=== PATIENT | male | born 1945 | race Caucasian/White ===

== ENCOUNTER 2019-10-25 05:43 | Emergency (ER) | payer OTHER ==
[2019-10-25 06:40] LABS: Absolute Lymphocytes (CBC) 2.1 K/uL (0.7-4.9); Basophils % 0.7 % (0-1.3); Hematocrit 44.3 % (39.6-49.0); MPV 9.4 fL (7.6-11.3); RBC Red Blood Cell Count 4.91 M/uL (4.33-5.43)
[2019-10-25 07:01] LABS: BUN Blood Urea Nitrogen 16 mg/dL (7-18); Bicarbonate 31 mmol/L (21-32); Glucose Level 103 mg/dL (74-106); Magnesium 2.4 mg/dL (1.8-2.4); Potassium 4.7 mmol/L (3.5-5.1); Sodium Level 142 mmol/L (136-145); Troponin (Emerg Dept Use Only) < 0.02 ng/mL (0.0-0.045)
--- NOTE | 2019-10-25 07:28 | ER ---
Nurse's Notes [facility] Name: Wong Valentino Age: 74 yrs Sex: Male : 1945 Arrival Date: 10/25/2019 Time: 05:45 Bed 2 Private MD: Diagnosis: Radiculopathy, cervical region;Paresthesia of skin Presentation: 10/25 05:58 Presenting complaint: Patient states: "I have been getting this shocking feeling in my jd3 right arm that goes down into my right leg periodically. its almost as if someone is shocking me., but it comes and goes.". Transition of care: patient was not received from another setting of care. Onset of symptoms was October 25, 2019. Risk Assessment: Do you want to hurt yourself or someone else? Patient reports no desire to harm self or others. Initial Sepsis Screen: Does the patient meet any 2 criteria? No. Patient's initial sepsis screen is negative. Does the patient have a suspected source of infection? No. Patient's initial sepsis screen is negative. Care prior to arrival: None. 05:58 Method Of Arrival: Ambulatory j 05:58 Acuity: SIDNEY 3 jd3 Historical: - Allergies: 06:02 No Known Allergies; jd3 - Home Meds: 06:02 Crestor oral oral [Active]; jd3 - PMHx: 06:02 None; jd3 - PSHx: 06:02 Appendectomy; jd3 - Immunization history:: Adult Immunizations up to date. - Social history:: Smoking status: Patient/guardian denies using tobacco. - Ebola Screening: : Patient negative for fever greater than or equal to 101.5 degrees Fahrenheit, and additional compatible Ebola Virus Disease symptoms. Screenin:04 Abuse screen: Denies threats or abuse. Nutritional screening: No deficits noted. jd3 Tuberculosis screening: No symptoms or risk factors identified. Fall Risk Ambulatory Aid- None/Bed Rest/Nurse Assist (0 pts). Gait- Normal/Bed Rest/Wheelchair (0 pts) Mental Status- Oriented to own ability (0 pts). Total Rubin Fall Scale indicates No Risk (0-24 pts). Assessment: 06:03 General: Appears in no apparent distress. comfortable, Behavior is calm, cooperative, jd3 appropriate for age. Pain: Complains of pain in right arm and right leg Quality of pain is described as tingling, stinging, Is intermittent. Neuro: Level of Consciousness is awake, alert, obeys commands, Oriented to person, place, time, situation. Cardiovascular: Denies chest pain, Capillary refill < 3 seconds Patient's skin is warm and dry. Respiratory: Airway is patent Respiratory effort is even, unlabored, Respiratory pattern is regular, symmetrical, Denies cough, shortness of breath. GI: No signs and/or symptoms were reported involving the gastrointestinal system. : No signs and/or symptoms were reported regarding the genitourinary system. EENT: No signs and/or symptoms were reported regarding the EENT system. Derm: Skin is intact, Skin is dry, Skin is normal, Skin temperature is warm. Musculoskeletal: Circulation, motion, and sensation intact. Range of motion: intact in all extremities. 07:00 Reassessment: RECD REPORT FROM FREDRICK VIGIL. 74YO WM P/W RUE "SHOCKING" SENSATION. ALL bp CURRENT ORDERS COMPLETED. DISPO PENDING. 07:46 Reassessment: PT D/C HOME AMBULATORY WITH FAMILY, DX WITH CERVICAL RADICULOPATHY. bp Vital Signs: 06:02 BP 134 / 71; Pulse 53; Resp 16 S; Temp 97.2(O); Pulse Ox 99% on R/A; Weight 87.54 kg j (R); Height 6 ft. 0 in. (182.88 cm) (R); Pain 0/10; 07:17 BP 113 / 75; Pulse 56; Resp 16; Pulse Ox 96% ; bp 06:02 Body Mass Index 26.18 (87.54 kg, 182.88 cm) j ED Course: 05:45 Patient arrived in ED. cl3 05:46 Arturo Villegas FNP-C is PHCP. la1 05:46 Arturo Villegas FNP-C is PHCP. la1 05:46 Asif Hook MD is Attending Physician. la1 05:58 Juan Antonio Knight RN is Primary Nurse. jd3 06:00 Triage completed. jd3 06:03 Arm band placed on. jd3 06:04 Patient has correct armband on for positive identification. Bed in low position. Call j light in reach. Side rails up X 1. Adult w/ patient. 06:25 Inserted saline lock: 20 gauge in left antecubital area, using aseptic technique. Blood jd3 collected. 07:03 Primary Nurse role handed off by Juan Antonio Knight RN bp 07:03 Hector Tinajero, RN is Primary Nurse. bp 07:17 CT C Spine In Process Unspecified. EDMS 07:19 Stefan Harrison MD is Referral Physician. la1 07:46 No provider procedures requiring assistance completed. IV discontinued, intact, bp bleeding controlled, No redness/swelling at site. Pressure dressing applied. Administered Medications: 07:30 Drug: Valium 5 mg Route: PO; bp 07:46 Follow up: Response: No adverse reaction bp Outcome: 07:19 Discharge ordered by MD. la1 07:46 Discharged to home ambulatory, with family. bp 07:46 Condition: stable 07:46 Discharge instructions given to patient, Instructed on discharge instructions, follow up and referral plans. medication usage, Demonstrated understanding of instructions, follow-up care, medications, Prescriptions given X 1. 07:47 Patient left the ED. bp Signatures: Dispatcher [employer] EDMA Arturo Villegas, OCCUPATIONAL THERAPY INSTRUCTOR-C OCCUPATIONAL THERAPY INSTRUCTOR-Cla1 Juan Antonio Knight RN RN jHector Kirk, RN RN Filipe Ventura cl3
--- NOTE | 2019-10-25 07:29 | EDPHYS ---
Physician Documentation [facility] Name: Wong Valentino Age: 74 yrs Sex: Male : 1945 Arrival Date: 10/25/2019 Time: 05:45 Bed 2 Private MD: CHADD Physician Asif Hook HPI: 10/25 06:45 This 74 yrs old Male presents to ER via Ambulatory with complaints of Arm la1 Pain. 06:45 The patient or guardian complains of pain. The complaints affect the right leg and la1 right arm. Context: The problem was sustained at home, resulted from unknown cause. Onset: The symptoms/episode began/occurred yesterday. Treatment prior to arrival includes: no previous treatment. Modifying factors: The symptoms are alleviated by nothing. the symptoms are aggravated by nothing. Associated signs and symptoms: Pertinent positives: pain, tingling, Pertinent negatives: decreased range of motion, deformity, erythema, fever, nausea, numbness, swelling, vomiting, warmth, weakness. Severity of symptoms: At their worst the symptoms were mild. The patient has not experienced similar symptoms in the past. The patient has been recently seen by a physician: the patient's primary care provider, for apparently unrelated complaints. pt reports since last night he has had stinging/shooting pain that causes a spasm/twitch in the right arm and occasionally in the right leg, happened about 10 times since 0400 this morning, episodes last just about one second, no associated dizziness, chest pain, sob, fevers.. Historical: - Allergies: 06:02 No Known Allergies; jd3 - Home Meds: 06:02 Crestor oral oral [Active]; jd3 - PMHx: 06:02 None; jd3 - PSHx: 06:02 Appendectomy; jd3 - Immunization history:: Adult Immunizations up to date. - Social history:: Smoking status: Patient/guardian denies using tobacco. - Ebola Screening: : Patient negative for fever greater than or equal to 101.5 degrees Fahrenheit, and additional compatible Ebola Virus Disease symptoms. ROS: 06:48 Constitutional: Negative for fever, chills, and weight loss, Eyes: Negative for injury, la1 pain, redness, and discharge, ENT: Negative for injury, pain, and discharge, Neck: + for right lateral posterior neck pain Cardiovascular: Negative for chest pain, palpitations, and edema, Respiratory: Negative for shortness of breath, cough, wheezing, and pleuritic chest pain, Abdomen/GI: Negative for abdominal pain, nausea, vomiting, diarrhea, and constipation, Back: Negative for injury and pain, : Negative for injury, bleeding, discharge, and swelling, Skin: Negative for injury, rash, and discoloration. 06:48 MS/extremity: Positive for pain, of the right leg and right arm. 06:48 Neuro: Positive for tingling, Negative for altered mental status, dizziness, headache, loss of consciousness, numbness, seizure activity, speech changes, syncope, near syncope, tingling, tremor, visual changes, weakness. Exam: 06:49 Constitutional: This is a well developed, well nourished patient who is awake, alert, la1 and in no acute distress. Head/Face: Normocephalic, atraumatic. Eyes: Pupils equal round and reactive to light, extra-ocular motions intact. Periorbital areas with no swelling, redness, or edema. ENT: Mucous membranes moist. Neck: Supple, full range of motion without nuchal rigidity, or vertebral point tenderness. No Meningismus. Mild pain to palpation to right lateral posterior neck Chest/axilla: Normal chest wall appearance and motion. Nontender with no deformity. No lesions are appreciated. Cardiovascular: Regular rate and rhythm with a normal S1 and S2. No gallops, murmurs, or rubs. Normal PMI, no JVD. No pulse deficits. Respiratory: Lungs have equal breath sounds bilaterally, clear to auscultation No rales, rhonchi or wheezes noted. No increased work of breathing, no retractions or nasal flaring. Abdomen/GI: Soft, non-tender, with normal bowel sounds. No guarding or rebound. No evidence of tenderness throughout. Back: No spinal tenderness. No costovertebral tenderness. Full range of motion. MS/ Extremity: Pulses equal, no cyanosis. Neurovascular intact. Full, normal range of motion. Neuro: Awake and alert, GCS 15, oriented to person, place, time, and situation. Cranial nerves II-XII grossly intact. Motor strength 5/5 in all extremities. Sensory grossly intact. Cerebellar exam normal. Normal gait. Vital Signs: 06:02 BP 134 / 71; Pulse 53; Resp 16 S; Temp 97.2(O); Pulse Ox 99% on R/A; Weight 87.54 kg jd3 (R); Height 6 ft. 0 in. (182.88 cm) (R); Pain 0/10; 07:17 BP 113 / 75; Pulse 56; Resp 16; Pulse Ox 96% ; bp 06:02 Body Mass Index 26.18 (87.54 kg, 182.88 cm) jd3 MDM: 05:52 Patient medically screened. la1 07:17 Data reviewed: vital signs, nurses notes, lab test result(s), EKG, radiologic studies, la1 I have discussed the patient's presentation/case with the attending Emergency Department Physician; and as a result, I will discharge patient. Data interpreted: Pulse oximetry: on room air is 99 %. Interpretation: normal. Counseling: I had a detailed discussion with the patient and/or guardian regarding: the historical points, exam findings, and any diagnostic results supporting the discharge/admit diagnosis, lab results, radiology results, the need for outpatient follow up, a family practitioner, a neurologist. Special discussion: Based on the history and exam findings, there is no indication for further emergent testing or inpatient evaluation. I discussed with the patient/guardian the need to see the neurologist for further evaluation of the symptoms. ED course: No weakness to affected arm, no focal neurological deficits, will have pt see PCP and neurology, strict return precautions given. 10/25 06:10 Order name: CBC with Diff 10/25 06:10 Order name: BMP; Complete Time: 07:10 10/25 06:10 Order name: Magnesium; Complete Time: 07:10 10/25 06:10 Order name: Troponin (emerg Dept Use Only); Complete Time: 07:10 10/25 06:10 Order name: CT C Spine 10/25 06:10 Order name: EKG; Complete Time: 06:12 10/25 06:10 Order name: EKG - Nurse/Tech; Complete Time: 06:25 10/25 06:10 Order name: IV; Complete Time: 06:25 la1 Administered Medications: 07:30 Drug: Valium 5 mg Route: PO; bp 07:46 Follow up: Response: No adverse reaction bp Disposition: 10/25/19 07:19 Discharged to Home. Impression: Radiculopathy, cervical region, Paresthesia of skin. - Condition is Stable. - Discharge Instructions: Cervical Radiculopathy, Paresthesia, Radicular Pain. - Prescriptions for Robaxin 500 mg Oral Tablet - take 2 tablets by ORAL route every 8-10 hours As needed; 25 tablet. - Medication Reconciliation Form, Thank You Letter form. - Follow up: Private Physician; When: 2 - 3 days; Reason: Recheck today's complaints, Re-evaluation by your physician. Follow up: Emergency Department; When: As needed; Reason: Worsening of condition. Follow up: Stefan Harrison MD; When: 2 - 3 days; Reason: Further diagnostic work-up, Recheck today's complaints, Re-evaluation by your physician. - Problem is new. - Symptoms are unchanged. Addendum: 10/28/2019 09:25 Co-signature as Attending Physician, Asif Hook MD I agree with the assessment and c hines plan of care. Signatures: Dispatcher [employer] EDPA Asif Hook MD MD cha Attema, Lee, HAND SPRING REPAIRER-C HAND SPRING REPAIRER-Cla1 Juan Antonio Knight, RN RN jHector Kirk RN RN bp Corrections: (The following items were deleted from the chart) 10/25 07:47 07:19 10/25/2019 07:19 Discharged to Home. Impression: Radiculopathy, cervical region; bp Paresthesia of skin. Condition is Stable. Forms are Medication Reconciliation Form, Thank You Letter, Antibiotic Education, Prescription Opioid Use. Follow up: Private Physician; When: 2 - 3 days; Reason: Recheck today's complaints, Re-evaluation by your physician. Follow up: Emergency Department; When: As needed; Reason: Worsening of condition. Follow up: Stefan Harrison; When: 2 - 3 days; Reason: Further diagnostic work-up, Recheck today's complaints, Re-evaluation by your physician. Problem is new. Symptoms are unchanged. la1
[2019-10-25] MEDS ORDERED: DIAZEPAM 5 MG TABLET ONE (07:37)
[2019-10-25 07:59] VITALS: TEMP 97.2
[2019-10-25 08:01] VITALS: BP 113/75; O2SAT 96
--- NOTE | 2019-10-25 10:36 | RAD REPORT ---
EXAM DESCRIPTION: CT - C Spine Wo Con - 10/25/2019 7:12 am CLINICAL HISTORY: The patient is 74 years old and is Male; Numbness/tingling;Radiculopathy TECHNIQUE: Axial computed tomography images of the cervical spine without intravenous contrast. Sa gittal and coronal reformatted images were created and reviewed. This CT exam was performed using o ne or more of the following dose reduction techniques: automated exposure control, adjustment of th e mA and/or kV according to patient size, and/or use of iterative reconstruction technique. COMPARISON: No relevant prior studies available. FINDINGS: VERTEBRAE: The vertebral body heights and alignment are maintained. There is no acute fr acture. DISCS/SPINAL CANAL/NEURAL FORAMINA: Multilevel intervertebral disc space narrowing with anterior and posterior osteophyte formation throughout the cervical spine is present. Facet arthropathy is no srinivas most prominently from C2 through C5 on the right. Mild neural foraminal narrowing is noted most p rominently on the right. SOFT TISSUES: The soft tissues are normal. LUNG APICES: The lung apices are clear. IMPRESSION: Moderate spondylosis of the cervical spine.. Electronically signed by: Kimber Ambrosio MD 10/25/2019 6:52 AM MARKETING DEVELOPER Due to temporary technical issues with the PACS/Fluency reporting system, reports are being signed by the in house radiologist as a courtesy to ensure prompt reporting. The interpreting radiologist is f ully responsible for the content of the report.
--- NOTE | 2019-10-25 13:48 | EKG ---
Test Date: 2019-10-25 Test Time: 06:21:04 Pest Control Operator: MISAEL MEASUREMENT RESULTS: Intervals: Rate: 51 IN: 158 QRSD: 80 QT: 418 QTc: 385 [place]: P: 48 IN: 158 QRS: 16 T: 28 INTERPRETIVE STATEMENTS: Sinus bradycardia Otherwise normal ECG Compared to ECG 12/22/2014 03:55:01 Sinus rhythm no longer present Electronically Signed On 10-25-19 13:46:55 FIELD TRAINING MANAGER by Reymundo Jackson
== END 2019-10-25 07:47 | disposition home or self-care (01) ==
LOC: ER 05:43
DX: M54.12 Radiculopathy, cervical region (principal)
CPT/HCPCS: 36415; 72125; 80048; 83735; 84484; 85025; 93005; 99284

== ENCOUNTER 2020-05-29 11:18 | Emergency (ER) | payer OTHER ==
[2020-05-29] MEDS ORDERED: LIDOCAINE 1% 20 ML MDV ONE (12:14)
[2020-05-29] MEDS ORDERED: DOXYCYCLINE 100 MG CAP PO ONE (12:22)
[2020-05-29] MEDS ORDERED: TETANUS & DIPHTHERIA TOX,ADULT 0.5 ML VIAL ONE (12:22)
--- OUTSIDE RECORDS SUMMARY | 2020-05-29 12:29 | XMS REPORT | Clinical Summary ---
:1945 Author Organization [facility] Address [address] [place] [id number] Care Team Providers Name Role Phone MD Lydia Primary Care Provider Allergies No Known Allergies Medications Medication Sig Dispensed Refills Start Date End Date Status rosuvastatin (CRESTOR) Take 10 mg by 0 09/19/2018 Active 10 MG tablet mouth nightly. multivitamin with Take 1 tablet by 0 Active minerals tablet mouth daily. naproxen sodium (ALEVE Take by mouth. 0 Active ORAL) tadalafil (CIALIS) 20 Take 20 mg by 0 Active mg tablet mouth daily as needed. Active Problems Problem Noted Date Aftercare following surgery 10/12/2018 Epithelial inclusion cyst 10/10/2018 Cellulitis of left index finger 10/10/2018 Social History Tobacco Use Types Packs/Day Years Used Date Never Smoker Smokeless Tobacco: Never Used Alcohol Use Drinks/Week oz/Week Comments Yes 2 Standard drinks or equivalent 2.0 social Sex Assigned at Date Recorded Not on file Job Start Date Occupation Industry Not on file Not on file Not on file Travel History Travel Start Travel End No recent travel history available. Last Filed Vital Signs Not on file Plan of Treatment Health Maintenance Due Date Last Done Comments COLONOSCOPY SCREENING 02/09/1996 SHINGLES VACCINES (#1) 02/09/1996 65+ PNEUMOCOCCAL VACCINE (1 of 2 - PCV13) 2011 INFLUENZA VACCINE 05/23/2020 Results Not on fileafter 05/29/2019 Advance Directives For more information, please contact: [phone] Type Date Recorded Patient Rotary Drill Rig Operator Explanati on Advance Directives, Living 10/12/2018 8:44 AM Will and Medical Power of System Developer Associate Manager
--- NOTE | 2020-05-29 13:08 | RAD REPORT ---
EXAM DESCRIPTION: RAD - Wrist Right 3 View - 05/29/2020 12:51 pm CLINICAL HISTORY: puncture wound, ventral surface right wrist and distal forearm COMPARISON: No comparisons FINDINGS: No fracture is identified. There is no dislocation or periosteal reaction noted. Soft tiss ue edema or contusion changes are present in the ventral soft tissues of the distal forearm and wrist on the right. No retained foreign body. IMPRESSION: Soft tissue edema or contusion distal right wrist. No retained foreign body.
--- NOTE | 2020-05-29 13:35 | ER ---
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 Coronavirus screen: iw Client denies travel out of the [place] in the last 14 days. At this time, the client does not indicate any symptoms associated with coronavirus-19. Ebola Screen: Patient negative for fever greater than or equal to 101.5 degrees Fahrenheit, and additional compatible Ebola Virus Disease symptoms Patient denies exposure to infectious person. Patient denies travel to an Ebola-affected area in the 21 days before illness onset. No symptoms or risks identified at this time. Initial Sepsis Screen: Does the patient meet any 2 criteria? No. Patient's initial sepsis screen is negative. Does the patient have a suspected source of infection? No. Patient's initial sepsis screen is negative. Risk Assessment: Do you want to hurt yourself or someone else? Patient reports no desire to harm self or others. Onset of symptoms was May 29, 2020. 11:36 Method Of Arrival: Ambulatory 11:36 Acuity: SIDNEY 4 iw Historical: - Allergies: 11:40 No Known Allergies; iw - Home Meds: 11:40 Crestor Oral once daily [Active]; iw - PMHx: 11:40 Hyperlipidemia; DVT; iw - PSHx: 11:40 shoulder; prostate; iw - Immunization history:: Adult Immunizations up to date, Last tetanus immunization: unknown. - Social history:: Smoking status: . Screenin:07 Abuse screen: Denies threats or abuse. Denies injuries from another. Nutritional ks7 screening: No deficits noted. Tuberculosis screening: No symptoms or risk factors identified. Fall Risk None identified. Assessment: 12:07 General: Appears in no apparent distress. Behavior is calm, cooperative. Pain: ks7 Complains of pain in right wrist Pain does not radiate. Pain currently is 4 out of 10 on a pain scale. Quality of pain is described as tender, Is continuous, Alleviated by rest, Aggravated by increased activity. Derm: Skin fish hook to R wrist. bleeding controlled. pain with movement only. Vital Signs: 11:36 BP 131 / 57; Pulse 71; Resp 16; Temp 97.8; Pulse Ox 99% on R/A; Weight 87.54 kg; Height iw 6 ft. 0 in. (182.88 cm); 12:07 BP 117 / 70; Pulse 69; Resp 18; Temp 97.8; Pulse Ox 98% on R/A; Pain 4/10; ks7 13:10 BP 121 / 69; Pulse 66; Resp 18; Temp 97.9(O); Pulse Ox 99% on R/A; Pain 0/10; ks7 11:36 Body Mass Index 26.18 (87.54 kg, 182.88 cm) iw ED Course: 11:20 Patient arrived in ED. ag5 11:20 Paulo Freeman MD is Private Physician. ag5 11:35 Sylvia Son, RN is Primary Nurse. iw 11:39 Triage completed. iw 11:43 Arm band placed on. iw 11:44 Jensen Chen NP is PHCP. pm1 11:44 Matias Irby MD is Attending Physician. pm1 11:59 Maricel Jean-Baptiste, YARITZA is Primary Nurse. ks7 12:07 Patient has correct armband on for positive identification. Bed in low position. Call ks7 light in reach. Side rails up X2. 12:07 No provider procedures requiring assistance completed. Patient did not have IV access ks7 during this emergency room visit. 12:27 Nurse Practitioner and/or Physician Scrap Hoist Operator to see patient. at beside removiing fish ks7 hook from pt. 12:41 portable xray done. ks7 13:32 Resting quietly. Awaiting disposition. ks7 13:32 Wound care: to puncture located on right arm and palmar aspect of right wrist was ks7 cleaned with with saline, dressed with Neosporin, band aid, Patient tolerated well. Administered Medications: 12:17 Drug: Lidocaine (1 %) 5 ml {Note: administered by DIRECTOR BLOOD BANK.} Volume: 5 ml; Route: ks7 Infiltration; 12:17 Drug: Doxycycline 100 mg Route: PO; ks7 12:40 Drug: Tetanus-Diphtheria Toxoid Adult 0.5 ml {Lead Sql Developer: [employer]. Exp: ks7 12/06/2021. Lot #: [id number]. } Route: IM; Site: right vastus lateralis; Outcome: 13:35 Discharge ordered by . pm1 13:41 Discharged to home ambulatory. ks7 13:41 Condition: good 13:41 Discharge instructions given to patient, Instructed on discharge instructions, medication usage, Demonstrated understanding of instructions, medications, Prescriptions given X 1. 13:41 Patient left the ED. ks7 Signatures: Sylvia Son RN RN iw Jensen Chen NP DIRECTOR BLOOD BANK pm1 Tyree Wen 5 Maricel Jean-Baptiste RN RN ks7 Corrections: (The following items were deleted from the chart) 12:41 12:07 Pulse 69bpm; Resp 18bpm; Pulse Ox 98% RA; Temp 97.8F; Pain 4/10; ks7 ks7
--- NOTE | 2020-05-29 13:35 | EDPHYS ---
Physician Documentation [facility] Name: Wong Valentino Age: 75 yrs Sex: Male : 1945 Arrival Date: 05/29/2020 Time: 11:20 Bed 23 Private MD: Paulo Freeman V ED Physician Matias Irby HPI: 05/29 12:03 This 75 yrs old Male presents to ER via Ambulatory with complaints of pm1 Puncture Wound To Hand. 12:03 The patient or guardian reports a puncture wound, fish hook. The complaints affect the pm1 right wrist. Context: The problem was sustained outdoors, resulted from accidental. Onset: The symptoms/episode began/occurred just prior to arrival. Modifying factors: The symptoms are alleviated by nothing, the symptoms are aggravated by movement. Associated signs and symptoms: Pertinent negatives: cyanosis distally, decreased sensation distally, numbness distally, tingling distally. Severity of symptoms: in the emergency department the symptoms are unchanged. The patient has not experienced similar symptoms in the past. The patient has not recently seen a physician. Historical: - Allergies: 11:40 No Known Allergies; iw - Home Meds: 11:40 Crestor Oral once daily [Active]; iw - PMHx: 11:40 Hyperlipidemia; DVT; iw - PSHx: 11:40 shoulder; prostate; iw - Immunization history:: Adult Immunizations up to date, Last tetanus immunization: unknown. - Social history:: Smoking status: . ROS: 12:03 Constitutional: Negative for fever, chills, and weight loss. pm1 12:03 Cardiovascular: Negative for chest pain, palpitations, and edema, Respiratory: Negative for shortness of breath, cough, wheezing, and pleuritic chest pain, Abdomen/GI: Negative for abdominal pain, nausea, vomiting, diarrhea, and constipation. 12:03 Neuro: Negative for headache, weakness, numbness, tingling, and seizure. 12:03 MS/extremity: Positive for puncture, of the palmar aspect of right wrist, Negative for decreased range of motion, deformity. 12:03 Skin: Positive for puncture, of the palmar aspect of right wrist. Exam: 12:03 Constitutional: This is a well developed, well nourished patient who is awake, alert, pm1 and in no acute distress. Head/Face: Normocephalic, atraumatic. 12:03 Back: No spinal tenderness. No costovertebral tenderness. Full range of motion. 12:03 Cardiovascular: Exam negative for acute changes, Rate: normal, Rhythm: regular, Pulses: no pulse deficits are appreciated, Pulses are 2+ in right radial artery and left radial artery. 12:03 Respiratory: Exam negative for acute changes, respiratory distress, shortness of breath. 12:03 Musculoskeletal/extremity: Extremities: grossly normal except: noted in the palmar aspect of right wrist: puncture, There is no evidence of decreased ROM, deformity. Vital Signs: 11:36 BP 131 / 57; Pulse 71; Resp 16; Temp 97.8; Pulse Ox 99% on R/A; Weight 87.54 kg; Height iw 6 ft. 0 in. (182.88 cm); 12:07 BP 117 / 70; Pulse 69; Resp 18; Temp 97.8; Pulse Ox 98% on R/A; Pain 4/10; ks7 13:10 BP 121 / 69; Pulse 66; Resp 18; Temp 97.9(O); Pulse Ox 99% on R/A; Pain 0/10; ks7 11:36 Body Mass Index 26.18 (87.54 kg, 182.88 cm) iw Procedures: 12:31 Foreign Body Removal: a fishhook, from the palmar aspect of right wrist, by Small pm1 incision made with #11 scalpel and hook pushed through and rebekah cut off and hook backed out. Dressinx4s were used to dress the wound, The patient tolerated the removal well, Lidocaine 1% 2 mL locally infused to wound . MDM: 11:44 Patient medically screened. pm1 12:31 Data reviewed: vital signs. Counseling: I had a detailed discussion with the patient pm1 and/or guardian regarding: the historical points, exam findings, and any diagnostic results supporting the discharge/admit diagnosis. 12:31 Special discussion: I discussed in detail with the patient the higher chance of wound pm1 infection based on his presenting history. 13:34 Counseling: I had a detailed discussion with the patient and/or guardian regarding: pm1 radiology results, the need for outpatient follow up, a hand specialist, to return to the emergency department if symptoms worsen or persist or if there are any questions or concerns that arise at home. 05/29 12:31 Order name: Wrist Right 3 View XRAY pm1 05/29 13:09 Order name: RAD; Complete Time: 13:36 EDMS Administered Medications: 12:17 Drug: Lidocaine (1 %) 5 ml {Note: administered by EDDY CURRENT INSPECTOR.} Volume: 5 ml; Route: ks7 Infiltration; 12:17 Drug: Doxycycline 100 mg Route: PO; ks7 12:40 Drug: Tetanus-Diphtheria Toxoid Adult 0.5 ml {Talent Advisor: [employer]. Exp: ks7 12/06/2021. Lot #: [id number]. } Route: IM; Site: right vastus lateralis; Disposition: 16:23 Co-signature as Attending Physician, Matias Irby MD I agree with the assessment and kdr plan of care. Disposition: 05/29/20 13:35 Discharged to Home. Impression: Puncture wound with foreign body of left wrist - foreign body removed. - Condition is Stable. - Discharge Instructions: Puncture Wound. - Prescriptions for Doxycycline Hyclate 100 mg Oral Tablet - take 1 tablet by ORAL route every 12 hours; 20 tablet. - Medication Reconciliation Form, Thank You Letter, Antibiotic Education, Prescription Opioid Use form. - Follow up: Emergency Department; When: As needed; Reason: Worsening of condition. Follow up: Private Physician; When: 2 - 3 days; Reason: Recheck today's complaints, Continuance of care, Re-evaluation by your physician. - Problem is new. - Symptoms have improved. Signatures: Dispatcher [employer] EDMS Matias Irby MD MD [facility] Sylvia Son RN RN iw Marinas, Patrick, NP [employer]DY CURRENT INSPECTOR pm1 Maricel Jean-Baptiste RN RN ks7 Corrections: (The following items were deleted from the chart) 13:41 13:35 05/29/2020 13:35 Discharged to Home. Impression: Puncture wound with foreign body ks7 of left wrist - foreign body removed. Condition is Stable. Forms are Medication Reconciliation Form, Thank You Letter, Antibiotic Education, Prescription Opioid Use. Follow up: Emergency Department; When: As needed; Reason: Worsening of condition. Follow up: Private Physician; When: 2 - 3 days; Reason: Recheck today's complaints, Continuance of care, Re-evaluation by your physician. Problem is new. Symptoms have improved. pm1
[2020-05-29 13:49] VITALS: BP 121/69; TEMP 97.9; O2SAT 99
== END 2020-05-29 13:41 | disposition home or self-care (01) ==
LOC: ER 11:18
PROC: 0JC Subcutaneous Tissue and Fascia, Extirpation (ICD-10-PCS; principal; 2020-05-29)
DX: S61.541A Puncture wound with foreign body of right wrist, initial encounter (principal); E78.5 Hyperlipidemia, unspecified; Z23 Encounter for immunization
CPT/HCPCS: 90471; 90714; 99283